=== PATIENT | male | born 1950 | race Caucasian/White ===

== ENCOUNTER → 2017-12-31 | Outpatient (CLI) | payer MEDICARE, OTHER ==
--- NOTE | 2017-12-31 08:08 | RAD ---
EXAM DESCRIPTION: Knee,Left Complete CLINICAL HISTORY: 67 years Male, KNEE PAIN COMPARISON: None. FINDINGS: 4 views of the left knee show no acute fracture or malalignment. Is a small to moderate size left knee joint effusion. Advanced medial joint space narrowing is noted. Less advanced degenerative changes are present in the patellofemoral compartment. Surgical clips are noted in the soft tissues medial to the left tibia proximally. Vascular calcifications are also present. IMPRESSION: Degenerative changes in the medial and patellofemoral compartments including advanced medial joint space narrowing. Small to moderate-sized left knee joint effusion. Electronically signed by: Kavin Chaidez MD 12/31/2017 8:07 AM CDT
--- NOTE | 2017-12-31 08:10 | RAD ---
EXAM DESCRIPTION: Knee,Right Complete CLINICAL HISTORY: 67 years Male, KNEE PAIN COMPARISON: None. FINDINGS: 4 views of the right knee show no acute fracture or malalignment. There is a moderate size right knee joint effusion. Severe joint space narrowing is noted in the medial compartment with less advanced degenerative changes in the patellofemoral and lateral compartments. Subtle chondrocalcinosis is noted in the lateral compartment, also likely degenerative. Several tiny calcifications projecting over the tibial spines on the AP views could represent loose joint bodies. Vascular calcifications are noted. IMPRESSION: Tricompartmental degenerative changes including advanced medial joint space narrowing. Right knee joint effusion and possible calcified loose joint bodies. Electronically signed by: Kavin Chaidez MD 12/31/2017 8:09 AM CDT
--- NOTE | 2017-12-31 08:12 | RAD ---
EXAM DESCRIPTION: Pelvis CLINICAL HISTORY: 67 years Male, PELVIC PAIN COMPARISON: None. FINDINGS: Single AP view the pelvis was obtained. The iliac crests are partially excluded, but no acute fracture or malalignment is seen. Degenerative calcifications arise from the acetabular margins bilaterally without significant hip joint space narrowing. The sacroiliac joints are well-maintained. Vascular calcifications are noted. IMPRESSION: Mild degenerative changes in both hips, but no additional abnormality to explain pelvic pain. Electronically signed by: Kavin Chaidez MD 12/31/2017 8:10 AM CDT
== END ==
LOC: RAD 07:05
PROVIDERS: ATTEND Orthopaedic Surgery
DX: M25.562 Pain in left knee (principal); M25.561 Pain in right knee; M25.551 Pain in right hip; M25.552 Pain in left hip; M25.462 Effusion, left knee; M25.461 Effusion, right knee

== ENCOUNTER → 2018-01-10 | Outpatient (CLI) | payer MEDICARE, OTHER | LOC: RESP 11:15 | PROVIDERS: ATTEND Orthopaedic Surgery | DX: Z01.818 Encounter for other preprocedural examination (principal) ==

== ENCOUNTER 2018-01-23 05:45 | Inpatient (IN) | payer MEDICARE, OTHER ==
--- NOTE | 2018-01-17 13:34 | HP ---
CHIEF COMPLAINT: Bilateral knee pain. HISTORY OF PRESENT ILLNESS: Mr. Munson is a 67-year-old male with a history of pain in both knees that had been getting progressively worse. He has had injections in the past. Unfortunately, his pain has failed to improve with these injections. Because of failure of the conservative measures, he has requested operative intervention. After discussing the risks, benefits and alternatives to operative therapy, the patient has given informed consent for total knee arthroplasty. PAST SURGICAL HISTORY: 1. Cardiac bypass. MEDICATIONS: 1. Coreg. 2. Lasix. 3. Aspirin. 4. Potassium. 5. Ibuprofen. ALLERGIES: NO KNOWN DRUG ALLERGIES. CODE STATUS: Full code. IMMUNIZATIONS: Up to date. SOCIAL HISTORY: The patient does not smoke or use any illicit drugs. He does drink on occasion. FAMILY HISTORY: None pertinent to today's complaint. REVIEW OF SYSTEMS: Negative except as indicated in the History of Present Illness. PHYSICAL EXAMINATION: VITAL SIGNS: Blood pressure 127/71. Pulse 56. Height 5'6". Weight 205 pounds. MENTAL STATUS: The patient is awake, alert, and is able to give a good history and participate in the physical. The patient is oriented to person, place and time. SKIN: Normal tone and turgor. HEENT: Normocephalic, atraumatic. Pupils equal, round and reactive. Mucosal membranes are moist. NECK: Normal range of motion. No thyromegaly, no lymphadenopathy. CHEST: Normal respiratory excursion. CARDIAC: Regular rate and rhythm. No murmurs, rubs or gallops. MUSCULOSKELETAL: Bilateral upper extremities show full active range of motion. He has intact sensation. They are warm and well perfused. He has no deformity. Strength is 5/5. He has no crepitus. The left lower extremity shows full range of motion of the hip without pain. He has range of motion of the knee from 0 to approximately 120 degrees. He is tender diffusely, but most prominent over the medial aspect and with patellar mobilization. He has mild effusion today. Strength is 5/5. He has no varus/valgus or anterior/posterior laxity. The right lower extremity shows full range of motion of the hip. Range of motion of the knee is from 0 to 120 degrees. He has crepitus and pain throughout his range of motion. Sensation is intact. It is warm and well perfused. He has mild effusion. He has no varus/valgus or anterior/posterior laxity. He does have a slight varus deformity. IMAGING: X-rays show bilateral severe arthritis. ASSESSMENT: 1. Arthritis. PLAN: The plan at this point is for total knee arthroplasty. He says the right is worse than the left today, so we are going start with that one. Once he recovers from that, we will begin the other one. #[id number] [facility]
[2018-01-23] MEDS ORDERED: SODIUM CHL 0.9% 100ML MINI-BAG 100 ML IVPB ONE (05:56)
[2018-01-23] MEDS ORDERED: TRANEXAMIC ACID 1,000 MG/10 ML VIAL ONE ×2 (05:57→05:58)
[2018-01-23] MEDS ORDERED: ceFAZolin SODIUM 1 GM VIAL ONE ×2 (05:57→06:38)
[2018-01-23] MEDS ORDERED: LACTATED RINGERS 1,000 ML ONE ×2 (05:57→06:13)
[2018-01-23] MEDS ORDERED: VANCOMYCIN HCL INJ 1,000 MG VIAL IVPB ONE ×4 (05:57→20:01)
[2018-01-23] MEDS ORDERED: SODIUM CHLORIDE 0.9% 250ML 250 ML ONE ×3 (05:58→20:00)
[2018-01-23] MEDS ORDERED: SODIUM CHLORIDE 0.9% 100ML 100 ML IVPB ONE (05:58)
[2018-01-23] MEDS ORDERED: MORPHINE SULFATE *EPIDURAL* 0.5 MG/ML VIAL ONE (06:11)
[2018-01-23] MEDS ORDERED: MIDAZOLAM INJ 2 MG/2 ML VIAL ONE (06:12)
[2018-01-23] MEDS ORDERED: fentaNYL CITRATE INJ 50 MCG/ML AMP ONE (06:12)
[2018-01-23] MEDS ORDERED: LIDOCAINE 2 % GEL 5 ML TUBE TOP ONE (06:13)
[2018-01-23] MEDS ORDERED: BUPIVACAINE 0.25% W/EPI 50 ML VIAL INJ ONE (06:38)
[2018-01-23] MEDS ORDERED: BISACODYL SUPPOSITORY 10 MG PR PRN (06:59)
[2018-01-23] MEDS ORDERED: ACETAMINOPHEN 325 MG TAB PO PRN (06:59)
[2018-01-23] MEDS ORDERED: ONDANSETRON INJ 4 MG/2 ML VIAL IV PRN (06:59)
[2018-01-23] MEDS ORDERED: MORPHINE SULFATE INJ 10 MG/ML VIAL IV PRN (06:59)
[2018-01-23] MEDS ORDERED: ALUMINUM & MAGNESIUM HYDROXIDE 30 ML UD PO PRN (06:59)
[2018-01-23] MEDS ORDERED: DEX 5% W/NACL 0.45% 1000ML 1,000 ML IVS PRN (06:59)
[2018-01-23] MEDS ORDERED: MORPHINE SULFATE INJ 10 MG/ML VIAL IM PRN (06:59)
[2018-01-23] MEDS ORDERED: NALOXONE HCL INJ 0.4 MG/ML VIAL IV PRN (06:59)
[2018-01-23] MEDS ORDERED: PROMETHAZINE HCL INJ 12.5 MG in SODIUM CHLORIDE 0.9% 50ML 50 ML IVPB PRN (06:59)
[2018-01-23] MEDS ORDERED: TEMAZEPAM 15 MG CAP PO PRN (06:59)
[2018-01-23] MEDS ORDERED: SODIUM CHLORIDE 0.9% (FLUSH) 10 ML SYG IV PRN (06:59)
[2018-01-23] MEDS ORDERED: TRANEXAMIC ACID INJ 1,000 MG in SODIUM CHLORIDE 0.9% 100ML 100 ML IVPB ONE (06:59)
[2018-01-23] MEDS ORDERED: BENZOCAINE-MENTH LOZ (CEPACOL) 1 EA LOZ MT PRN (06:59)
[2018-01-23] MEDS ORDERED: ACETAMINOPHEN 500 MG TAB PO PRN (06:59)
[2018-01-23] MEDS ORDERED: MAGNESIUM HYDROXIDE 30 ML UD PO PRN (06:59)
[2018-01-23] MEDS ORDERED: ZOLPIDEM TARTRATE 5 MG TAB PO PRN (06:59)
[2018-01-23] MEDS ORDERED: PROMETHAZINE HCL INJ 25 MG in SODIUM CHLORIDE 0.9% 50ML 50 ML IVPB PRN (06:59)
--- NOTE | 2018-01-23 09:52 | OP ---
DATE OF PROCEDURE: 01/23/18 PREOPERATIVE DIAGNOSIS: 1. Osteoarthritis of the knee. POSTOPERATIVE DIAGNOSIS: 1. Osteoarthritis of the knee. PROCEDURE: 1. Total knee arthroplasty. SURGEON: Musa Hansen MD. DESIGN TRANSFERRER: James Lew CST, SA-C. ANESTHESIA: General. COMPLICATIONS: None. FINDINGS: Severe arthritis of the knee. INDICATION: Mr. Munson has a history of pain in the knee that has been refractory to conservative measures. Because of the refractory nature and the severe pain that is affecting his daily activity, he has requested operative intervention. After discussing the risks, benefits and alternatives to that, the patient has given informed consent for total knee arthroplasty. PROCEDURE: The patient was brought to the Operating Room and placed in supine position. General anesthesia was induced and the patient's leg was sterilely prepped and draped. Following prepping and draping, the distal femur was exposed and using an intramedullary guide, the distal femoral cut was made. The appropriate sized cutting block was measured, pinned into place, and the anterior, posterior, and chamfer cuts were made. The ACL was transected and the tibia was subluxed. Both the medial and lateral menisci were removed. An intramedullary guide was used to make the proximal tibial cut. The appropriate sized base plate was placed and a trial polyethylene was placed. The trial femur was placed, the knee was reduced, and the knee was taken through a range of motion. The knee was stable in anterior, posterior, varus and valgus stress. The patella tracked anatomically without evidence of subluxation or dislocation. After trialing, the trial components were removed and the bony surfaces were thoroughly irrigated with saline. Following irrigation, the surfaces were dried and the final components were cemented into place. The excess cement was removed and the remaining cement was allowed to cure. The knee was again taken through a range of motion to confirm stability. The wound was then irrigated with saline and closure was performed using PDS to approximate the arthrotomy followed by closure of the subcutaneous tissues with a combination of running and interrupted Monocryl sutures. Sterile dressing was placed. The patient was awoken from anesthesia and taken to Recovery. POSTOPERATIVE INSTRUCTIONS: The patient will be weight-bearing as tolerated on postoperative day 1. COMPONENTS: [employer] Triathlon knee, size 4 femur, size 4 tibia, 9 mm insert. #[id number] [facility]
[2018-01-23] MEDS ORDERED: PROPOFOL 200 MG/20 ML VIAL IV ONE (10:00)
[2018-01-23] MEDS ORDERED: DEXAMETHASONE INJ 10 MG/ML VIAL IV ONE (10:00)
[2018-01-23] MEDS ORDERED: METOCLOPRAMIDE HCL INJ 10 MG/2 ML VIAL IV ONE (10:00)
[2018-01-23] MEDS: MORPHINE PCA 1 MG/ML 100 ML BAG IVPB SCH (10:10)
[2018-01-23] MEDS: CELECOXIB 100 MG CAP PO SCH ×2 (11:34→17:20)
[2018-01-23] MEDS: IV SET AND CAP CHANGE INJ INJ SCH (11:34)
[2018-01-23] MEDS: MAGNESIUM OXIDE 400 MG TAB PO SCH (11:35)
[2018-01-23] MEDS ORDERED: ceFAZolin SODIUM 2 GRAMS PREMI 50 ML IVPB ONE ×2 (14:44→20:01)
[2018-01-23] MEDS: ceFAZolin SODIUM 2 GRAMS PREMI 2 GM in PREMIX BAG 1 BAG IVPB SCH ×2 (15:34→23:52)
[2018-01-23] MEDS: VANCOMYCIN HCL INJ 1,000 MG in SODIUM CHLORIDE 0.9% 250ML 250 ML IVPB SCH (17:40)
[2018-01-23] MEDS ORDERED: ENOXAPARIN SODIUM 30 MG/0.3 ML SYG SUBCU ONE (20:02)
[2018-01-23] MEDS: NON-FORMULARY MEDICATION 1 EA MIS (Furosemide [Lasix] 20 MG) PO SCH (21:33)
[2018-01-23] MEDS: DOCUSATE CALCIUM 240 MG CAP PO SCH (21:34)
[2018-01-23] MEDS: traMADol HCL 50 MG TAB PO PRN (22:14)
[2018-01-23] MEDS: ENOXAPARIN SODIUM 30 MG/0.3 ML SYG SUBCU SCH (23:29)
--- NOTE | 2018-01-23 23:45 | CONS ---
DATE OF CONSULTATION: 01/23/18 SUPERVISING PHYSICIAN: Naif Bateman M.D. CHIEF COMPLAINT: Knee pain. HISTORY OF PRESENT ILLNESS: This is a 67 year-old male patient that has a significant history of pain in both of his knees that has progressively worsened. He has had injections in the past but his pain has failed to improve. Due to failed outpatient treatment, he has requested operative intervention by Dr. Musa Hansen, orthopedic surgeon. I am seeing the patient postoperatively after his right total knee arthroplasty. PAST MEDICAL HISTORY: 1. Heart problems as a child. 2. Coronary artery disease. PAST SURGICAL HISTORY: 1. Cardiac bypass surgery. 2. Cardiac surgery as a child at age 12. 3. Vasectomy. 4. Hernia repair. OUTPATIENT MEDICATIONS: Per the EMR and awaiting verification. ALLERGIES: HYDROCODONE. CODE STATUS: FULL CODE. FAMILY HISTORY: Noncontributory. SOCIAL HISTORY: He lives in [place]. He is . He denies any tobacco, ETOH or illicit drug use. He quit smoking many years ago. REVIEW OF SYSTEMS: Negative except as per History of Present Illness. PHYSICAL EXAMINATION: VITAL SIGNS: He is afebrile, heart rate 69, blood pressure 120/75, respiratory rate 15, O2 sat is 96% on 2 liters nasal cannula. GENERAL: This is a 67 year-old male patient who is sitting up in his hospital bed. He is in no acute distress. HEENT: Normocephalic and atraumatic. Pupils are equal and reactive. Oropharynx is clear. NECK: Supple without mass. RESPIRATORY: Clear to auscultation bilaterally. CHEST: There is equal rise and fall of the chest with inspiration and expiration. HEART: Regular rate and rhythm. GASTROINTESTINAL: Abdomen is soft, nondistended, non-tender. Bowel sounds are positive. EXTREMITIES: No cyanosis, clubbing or edema. Bilateral pedal pulses are palpable at +2. He has a dressing to his right knee with an Perico bandage. He is in the CPM machine at this time. NEUROLOGIC: He is awake, alert and oriented times three. LABORATORY: Urine is basically within normal limits. All other labs and films have been reviewed via the EMR. IMPRESSION: 1. Osteoarthritis of bilateral knees status post right total knee arthroplasty , postoperative day [address] Musa Hansen, orthopedic surgeon. 2. Coronary artery disease. PLAN: We will continue present supportive care. Orthopedic issues will be per Dr. Musa Hansen. He will start with his physical therapy for strengthening and conditioning tomorrow with Physical Therapy. I have restarted his home medications. I have ordered a BMP for tomorrow. Will continue to encourage good pulmonary hygiene. We will continue to monitor the patient closely and follow as needed. Dr. Bateman is the collaborating physician available for consultation. #[id number] [facility]
[2018-01-24] MEDS: traMADol HCL 50 MG TAB PO PRN ×5 (01:53→21:44)
[2018-01-24] MEDS: VANCOMYCIN HCL INJ 1,000 MG in SODIUM CHLORIDE 0.9% 250ML 250 ML IVPB SCH (06:33)
[2018-01-24] MEDS ORDERED: ceFAZolin SODIUM 2 GRAMS PREMI 50 ML IVPB ONE (08:15)
[2018-01-24] MEDS: ceFAZolin SODIUM 2 GRAMS PREMI 2 GM in PREMIX BAG 1 BAG IVPB SCH (08:31)
[2018-01-24] MEDS: CELECOXIB 100 MG CAP PO SCH ×2 (08:31→17:49)
[2018-01-24] MEDS: CYCLOBENZAPRINE HCL 10 MG TAB PO PRN ×2 (08:35→17:50)
[2018-01-24] MEDS ORDERED: CARVEDILOL 3.125 MG TAB PO SCH (09:00)
[2018-01-24] MEDS: POTASSIUM CHLORIDE 10 MEQ TAB PO SCH (09:46)
[2018-01-24] MEDS: NON-FORMULARY MEDICATION 1 EA MIS (Furosemide [Lasix] 20 MG) PO SCH ×2 (09:46→21:46)
[2018-01-24] MEDS: MAGNESIUM OXIDE 400 MG TAB PO SCH (09:49)
--- NOTE | 2018-01-24 10:46 | RAD ---
EXAM DESCRIPTION: Knee,Right 2 or More Views CLINICAL HISTORY: 67 years, Male, TKA COMPARISON: Previous study December 31, 2017 TECHNIQUE: Two views of the right knee FINDINGS: Total right knee arthroplasty is noted with air in the soft tissues consistent with postoperative film. There is normal anatomic alignment of femoral and tibial components with no complicating fracture. There is vascular calcification. IMPRESSION: Total right knee arthroplasty. No complicating fracture. Electronically signed by: Carlos Eduardo Barros MD 01/24/2018 10:45 AM CDT
[2018-01-24] MEDS: ENOXAPARIN SODIUM 30 MG/0.3 ML SYG SUBCU SCH ×2 (11:58→23:21)
--- NOTE | 2018-01-24 13:42 | PN ---
DATE: 01/24/18 SUBJECTIVE: Mr. Munson is sitting up in a chair and his pain is well controlled right now. OBJECTIVE: Afebrile. Vital signs stable. Dressing is clean, dry and intact. ASSESSMENT: Status post total knee arthroplasty. PLAN: The plan at this point is for him to continue with weight-bearing as tolerated as well as increasing CPM. [facility][id number] [facility]
[2018-01-24] MEDS: MORPHINE PCA 1 MG/ML 100 ML BAG IVPB SCH (15:36)
--- NOTE | 2018-01-24 19:41 | PN ---
DATE: 01/24/18 SUPERVISING PHYSICIAN: Naif Bateman M.D. SUBJECTIVE: The patient is lying in his hospital bed. He is using his CPM machine on his right knee. He has no complaints of shortness of breath, chest pain, nausea, vomiting or diarrhea. He feels like his physical therapy went well and is looking forward to going home. We discussed at length his discharge plan, including his physical therapy in [place]. He will be using an [facility] physical therapy department and has a medical supply in [place], and would like to get his equipment from them. OBJECTIVE: VITAL SIGNS: Afebrile, heart rate 72, blood pressure 136/74, respiratory rate 18, O2 sat 96% on room air. LABORATORY: H&H 13.2 and 38.6. Sodium 136, potassium 3.6, chloride 95, carbon dioxide 33, BUN 13, creatinine 0.88, glucose 138. Serum osmolality 74.3. All other labs and films have been reviewed via the EMR. ASSESSMENT: 1. Osteoarthritis of bilateral knees status post right total knee arthroplasty , postoperative day #[address] Musa Hansen, orthopedic surgeon. 2. Coronary artery disease. PLAN: We will continue present supportive care. Orthopedic issues will be per Dr. Hansen. He will continue his physical therapy and strengthening per Physical Therapy. Will need to check on his equipment as well as his physical therapy appointment before discharge. We will continue to monitor him closely and follow as needed. Dr. Bateman is the collaborating physician available for consultation. #[id number] [facility]
[2018-01-24] MEDS: DOCUSATE CALCIUM 240 MG CAP PO SCH (21:46)
[2018-01-24] MEDS: CARVEDILOL 3.125 MG TAB PO SCH (21:46)
[2018-01-25] MEDS: traMADol HCL 50 MG TAB PO PRN ×2 (06:16→12:24)
[2018-01-25] MEDS: CELECOXIB 100 MG CAP PO SCH ×2 (08:21→17:12)
[2018-01-25] MEDS: CYCLOBENZAPRINE HCL 10 MG TAB PO PRN ×2 (08:21→17:13)
[2018-01-25] MEDS: MAGNESIUM OXIDE 400 MG TAB PO SCH (08:22)
[2018-01-25] MEDS: POTASSIUM CHLORIDE 10 MEQ TAB PO SCH (08:22)
[2018-01-25] MEDS: NON-FORMULARY MEDICATION 1 EA MIS (Furosemide [Lasix] 20 MG) PO SCH ×2 (08:22→20:40)
[2018-01-25] MEDS: SODIUM CHLORIDE 0.9% (FLUSH) 10 ML SYG IV SCH ×2 (08:40→20:40)
[2018-01-25] MEDS: ENOXAPARIN SODIUM 30 MG/0.3 ML SYG SUBCU SCH ×2 (12:24→22:15)
--- NOTE | 2018-01-25 13:14 | PN ---
SUPERVISING PHYSICIAN: Naif Bateman MD DATE: 01/25/18 SUBJECTIVE: The patient is sitting up in his chair eating his lunch. He feels like his therapy has been going well. He does have some pain in the knee, but it has not been unbearable. He denies chest pain, shortness of breath , nausea , vomiting, diarrhea or constipation. He feels like he should be ready to go home tomorrow. OBJECTIVE: VITAL SIGNS: Afebrile. Heart rate 88. Blood pressure 136/78. Respiratory rate 16. O2 saturation 94% on 2 liters nasal cannula. RESPIRATORY: Essentially clear to auscultation bilaterally. CARDIAC: Regular rate and rhythm. EXTREMITIES: Dressing to his right knee is dry and intact. He has minimal swelling. Bilateral pedal pulses are +2 and strong. NEUROLOGIC: Awake, alert and oriented times three. LABORATORY: All other labs and films have been reviewed via the EMR. ASSESSMENT: 1. Osteoarthritis of bilateral knees status post right total knee arthroplasty , postoperative day #2, performed by Dr. Musa Hansen, orthopedic surgeon. 2. Coronary artery disease. PLAN: We will continue present supportive care. Orthopedic issues will be per Dr. Musa Hansen, orthopedic surgeon. Physical therapy will continue for strengthening and conditioning. Physical therapy has recommended he be discharged tomorrow after his morning physical therapy. He will do outpatient physical therapy in [place]. Continue to encourage good pulmonary hygiene. We will continue to monitor the patient closely and follow as needed. Dr. Bateman is the collaborating physician and available for consultation. #[id number] [facility]
[2018-01-25] MEDS ORDERED: FUROSEMIDE 40 MG TAB ONE (19:57)
[2018-01-25] MEDS: DOCUSATE CALCIUM 240 MG CAP PO SCH (20:40)
[2018-01-25] MEDS: CARVEDILOL 3.125 MG TAB PO SCH (20:40)
[2018-01-26] MEDS ORDERED: FUROSEMIDE 40 MG TAB ONE ×2 (07:43→08:48)
[2018-01-26] MEDS: CELECOXIB 100 MG CAP PO SCH (07:55)
[2018-01-26] MEDS: POTASSIUM CHLORIDE 10 MEQ TAB PO SCH (07:56)
[2018-01-26] MEDS: IV SET AND CAP CHANGE INJ INJ SCH (08:33)
[2018-01-26] MEDS: MAGNESIUM OXIDE 400 MG TAB PO SCH (08:42)
[2018-01-26] MEDS: NON-FORMULARY MEDICATION 1 EA MIS (Furosemide [Lasix] 20 MG) PO SCH (08:53)
[2018-01-26] MEDS: SODIUM CHLORIDE 0.9% (FLUSH) 10 ML SYG IV SCH (08:54)
[2018-01-26 11:09] VITALS: BP 148/73; TEMP 98.2; O2SAT 88
[2018-01-26] MEDS: ENOXAPARIN SODIUM 30 MG/0.3 ML SYG SUBCU SCH (11:58)
[2018-01-26] MEDS ORDERED: MAGNESIUM HYDROXIDE 30 ML UD PO ONE (21:00)
[2018-01-26] MEDS ORDERED: BISACODYL SUPPOSITORY 10 MG PR ONE (21:00)
--- NOTE | 2018-01-30 15:57 | DS ---
SUPERVISING PHYSICIAN: Naif Bateman M.D. DISCHARGE DIAGNOSIS: 1. Osteoarthritis of bilateral knees status post right total knee arthroplasty , postoperative day #3. 2. Coronary artery disease. REASON FOR HOSPITALIZATION: Mr. Munson is a 67 year-old male patient with a history of bilateral arthritis of the knees that has progressively worsened. He had multiple injections and other conservative measures treatments in the outpatient setting but had failed to receive significant improvement. He requested an elective total knee arthroplasty for symptomatic relief. He was admitted for elective total right knee arthroplasty on 01/23/18 and was followed in the immediate postoperative state. He was found in stable condition. LABORATORY: Postoperative H&H was 13.2 and 38.6. BMP showed normal electrolytes with BUN 13, creatinine 0.8, glucose 138, calcium 9.2. Urinalysis showed to be within normal limits. HOSPITAL COURSE: Mr. Munson as admitted as noted above on 01/23/18 for elective total right knee arthroplasty that was performed by Dr. Musa Hansen. Please refer to his operative note for full details. The patient progressed well through his physical therapy efforts and on 01/26/18 was felt clinically well enough to continue in the outpatient setting with physical therapy rehabilitation. PLAN: Mr. Munson was discharged on 01/26/18 to have continued physical therapy and rehabilitation through [facility]. He was to resume his usual diet as tolerated, increase his activity as per Physical Therapy. He was to have wound management as per Dr. Hansen's postoperative management. He was encouraged to return to the hospital or call Dr. Hansen should any concerning symptoms. Medications at discharge included: 1. Tramadol 50 to 100 mg every 6 hours as needed for pain. 2. Flexeril 10 mg every 8 hours, #15. 3. Xarelto 10 mg daily, #8. Condition on discharge was stable and improved. [facility][id number] [facility]
== END 2018-01-26 12:20 | disposition home or self-care (01) | DRG 470 ==
LOC: AMB 05:45 → MS 11:20
PROVIDERS: ADMIT Orthopaedic Surgery; ATTEND Nurse Practitioner Family
PROC: 0SRC0J9 Replacement of Right Knee Joint with Synthetic Substitute, Cemented, Open Approach (ICD-10-PCS; principal; 2018-01-23 07:00)
DX: M17.0 Bilateral primary osteoarthritis of knee (principal); I25.10 Atherosclerotic heart disease of native coronary artery without angina pectoris; Z95.1 Presence of aortocoronary bypass graft; Z79.82 Long term (current) use of aspirin; Z87.891 Personal history of nicotine dependence

== ENCOUNTER → 2018-10-11 | Outpatient (CLI) | payer MEDICARE, OTHER ==
--- NOTE | 2018-10-15 13:58 | RAD ---
EXAM DESCRIPTION: Knee,Left Complete CLINICAL HISTORY: OSTEOARTHRITIS COMPARISON: None. Findings: 4 standing views of the left knee show severe narrowing of the medial tibiofemoral compartment with mild joint line osteophytes. Flattening and sclerotic changes to the weightbearing articular surface are seen. Mild lateral positioning of the tibia plateau relative to the femoral condyles seen. Mild posterior osteophytes of the patella are seen with mild narrowing of the patellofemoral compartment. Mild increased density in the suprapatellar bursa is seen. Vascular calcifications are identified. Surgical clips in the medial soft tissue from previous vein graft harvest are noted. IMPRESSION: 3 compartment osteoarthritic changes of the left knee are seen with severe advanced osteoarthritic changes of the medial tibiofemoral compartment. Small left knee joint effusion. Electronically signed by: David Orozco MD 10/15/2018 1:56 PM [facility]
== END ==
LOC: RESP 10:49
PROVIDERS: ATTEND Orthopaedic Surgery
DX: Z01.818 Encounter for other preprocedural examination (principal); M17.12 Unilateral primary osteoarthritis, left knee

== ENCOUNTER 2018-10-22 05:26 | Inpatient (IN) | payer MEDICARE, OTHER ==
--- NOTE | 2018-10-21 10:25 | HP ---
CHIEF COMPLAINT: Left knee pain. HISTORY OF PRESENT ILLNESS: Mr. Munson is a 68-year-old male with a history of severe bilateral knee pain. He has had this going on for years and it is getting progressively worse. He has failed conservative measures and has had contralateral knee replacement. He is requesting operative intervention. After discussing the risks, benefits and alternatives to operative therapy, he has given informed consent. PAST SURGICAL HISTORY: 1. Cardiac bypass. 2. Total knee replacement. 3. Umbilical herniorrhaphy. MEDICATIONS: 1. Lasix. 2. Potassium chloride. 3. Carvedilol. 4. Metolazone. 5. Tylenol. ALLERGIES: NO KNOWN DRUG ALLERGIES. CODE STATUS: Full code. IMMUNIZATIONS: Up to date. FAMILY HISTORY: None pertinent to today's complaint. SOCIAL HISTORY: The patient does not smoke or use any illicit drugs. He does drink on occasion. REVIEW OF SYSTEMS: Negative except as indicated in the History of Present Illness. PHYSICAL EXAMINATION: VITAL SIGNS: Blood pressure 131/83. Pulse 70. Height 5'6". Weight 204 pounds. MENTAL STATUS: The patient is awake, alert, and is able to give a good history and participate in the physical. The patient is oriented to person, place and time. SKIN: Normal tone and turgor. HEENT: Normocephalic, atraumatic. Pupils equal, round and reactive. Mucosal membranes are moist. NECK: Normal range of motion. No thyromegaly, no lymphadenopathy. CHEST: Normal respiratory excursion. CARDIAC: Regular rate and rhythm. No murmurs, rubs or gallops. MUSCULOSKELETAL: He has full range of motion of bilateral upper extremities. He has intact sensation throughout the extremities. There is no deformity and no crepitus with range of motion. Sensation is intact. They are warm and well perfused. The right lower extremity shows full range of motion of the hip. Range of motion of the knee is from 0 to about 125. Sensation is intact. It is warm and well perfused. There is no varus/valgus or anterior/posterior laxity. The left lower extremity shows full range of motion in the hip. He has range of motion from 0 to about 125 degrees of the knee. He has slight varus deformity of the knee. Sensation is intact. Strength is 5/5. The extremity is warm and well perfused. He has crepitus throughout his range of motion and tenderness diffusely to palpation. IMAGING: X-rays show severe osteoarthritis with varus deformity. ASSESSMENT: 1. Osteoarthritis. PLAN: The plan at this point is total knee arthroplasty. We have discussed the risks, benefits, and alternatives to that and the patient has given informed consent. [facility][id number] [facility]
[2018-10-22] MEDS ORDERED: ceFAZolin SODIUM 1 GM VIAL ONE ×2 (06:05→08:17)
[2018-10-22] MEDS ORDERED: TRANEXAMIC ACID 1,000 MG/10 ML VIAL ONE ×2 (06:05→06:06)
[2018-10-22] MEDS ORDERED: LACTATED RINGERS 1,000 ML ONE ×2 (06:05→13:36)
[2018-10-22] MEDS ORDERED: SODIUM CHL 0.9% 100ML MINI-BAG 100 ML IVPB ONE (06:05)
[2018-10-22] MEDS ORDERED: VANCOMYCIN HCL INJ 1,000 MG VIAL IVPB ONE ×2 (06:05→19:20)
[2018-10-22] MEDS ORDERED: SODIUM CHLORIDE 0.9% 100ML 100 ML IVPB ONE (06:06)
[2018-10-22] MEDS ORDERED: SODIUM CHLORIDE 0.9% 250ML 250 ML ONE ×2 (06:06→19:19)
[2018-10-22] MEDS ORDERED: fentaNYL CITRATE INJ 50 MCG/ML AMP ONE (09:24)
[2018-10-22] MEDS ORDERED: MIDAZOLAM INJ 2 MG/2 ML VIAL ONE (09:24)
[2018-10-22] MEDS ORDERED: MORPHINE SULF *EPIDURAL* 1 MG/ML VIAL ONE (09:24)
[2018-10-22] MEDS ORDERED: NALOXONE HCL INJ 0.4 MG/ML VIAL IV PRN (09:30)
[2018-10-22] MEDS ORDERED: BISACODYL SUPPOSITORY 10 MG PR PRN (09:30)
[2018-10-22] MEDS ORDERED: IV SET AND CAP CHANGE INJ INJ SCH (09:30)
[2018-10-22] MEDS ORDERED: CYCLOBENZAPRINE HCL 10 MG TAB PO PRN (09:30)
[2018-10-22] MEDS ORDERED: ALUMINUM & MAGNESIUM HYDROXIDE 30 ML UD PO PRN (09:30)
[2018-10-22] MEDS ORDERED: ONDANSETRON INJ 4 MG/2 ML VIAL IV PRN (09:30)
[2018-10-22] MEDS ORDERED: TRANEXAMIC ACID INJ 1,000 MG in SODIUM CHLORIDE 0.9% 100ML 100 ML IVPB ONE (09:30)
[2018-10-22] MEDS ORDERED: MORPHINE PCA 1 MG/ML 100 ML BAG IVPB SCH (09:30)
[2018-10-22] MEDS ORDERED: MORPHINE SULFATE INJ 10 MG/ML VIAL IM PRN (09:30)
[2018-10-22] MEDS ORDERED: ACETAMINOPHEN 325 MG TAB PO PRN (09:30)
[2018-10-22] MEDS ORDERED: MAGNESIUM HYDROXIDE 30 ML UD PO PRN (09:30)
[2018-10-22] MEDS ORDERED: SODIUM CHLORIDE 0.9% (FLUSH) 10 ML SYG IV PRN (09:30)
[2018-10-22] MEDS ORDERED: PROMETHAZINE HCL INJ 12.5 MG in SODIUM CHLORIDE 0.9% 50ML 50 ML IVPB PRN (09:30)
[2018-10-22] MEDS ORDERED: BENZOCAINE-MENTH LOZ (CEPACOL) 1 EA LOZ MT PRN (09:30)
[2018-10-22] MEDS ORDERED: PROMETHAZINE HCL INJ 25 MG in SODIUM CHLORIDE 0.9% 50ML 50 ML IVPB PRN (09:30)
[2018-10-22] MEDS ORDERED: DEX 5% W/NACL 0.45% 1000ML 1,000 ML IVS PRN (09:30)
[2018-10-22] MEDS ORDERED: TEMAZEPAM 15 MG CAP PO PRN (09:30)
[2018-10-22] MEDS ORDERED: MORPHINE SULFATE INJ 10 MG/ML VIAL IV PRN (09:30)
[2018-10-22] MEDS ORDERED: ACETAMINOPHEN 500 MG TAB PO PRN (09:30)
[2018-10-22] MEDS ORDERED: ZOLPIDEM TARTRATE 5 MG TAB PO PRN (09:30)
[2018-10-22] MEDS ORDERED: DEXAMETHASONE INJ 10 MG/ML VIAL IV ONE (10:00)
[2018-10-22] MEDS ORDERED: ePHEDrine SULF 50 MG/ML IV ONE (10:00)
[2018-10-22] MEDS ORDERED: METOCLOPRAMIDE HCL INJ 10 MG/2 ML VIAL IV ONE (10:00)
[2018-10-22] MEDS ORDERED: LIDOCAINE 1% 10 ML VIAL INJ ONE (10:00)
[2018-10-22] MEDS ORDERED: PROPOFOL 200 MG/20 ML VIAL IV ONE (10:00)
[2018-10-22] MEDS ORDERED: raNITIdine HCL INJ 25 MG/ML VIAL IV ONE (10:00)
[2018-10-22] MEDS ORDERED: ACETAMINOPHEN IV 1000MG 100 ML ONE (10:48)
[2018-10-22] MEDS: BUPIVACAINE LIPOSOME 13.3 MG/ML VIAL INJ ONE ×2 (11:18→12:15)
[2018-10-22] MEDS: BUPIVACAINE 0.5% 30 ML VIAL INJ ONE ×2 (11:18→12:15)
[2018-10-22] MEDS: ceFAZolin SODIUM 1 GM VIAL ONE ×2 (11:18→12:15)
[2018-10-22] MEDS: VANCOMYCIN HCL INJ 1,000 MG VIAL IVPB ONE ×2 (11:19→12:15)
[2018-10-22] MEDS ORDERED: BUPIVACAINE LIPOSOME 13.3 MG/ML VIAL INJ ONE (11:48)
--- NOTE | 2018-10-22 15:58 | RAD ---
EXAM DESCRIPTION: Knee,Left 2 or More Views CLINICAL HISTORY: 68 years Male, TKA TECHNIQUE: 2 views of the left knee were performed. COMPARISON: None available. FINDINGS: The visualized bones appear well mineralized. No acute fracture or dislocation. Changes of left total knee arthroplasty.. Soft tissue swelling and subcutaneous venous emphysema is noted. IMPRESSION: Changes of left total knee arthroplasty with expected postsurgical changes and the surrounding soft tissues. Electronically signed by: Terence Rico MD 10/22/2018 3:57 PM [facility]
[2018-10-22] MEDS ORDERED: ceFAZolin SODIUM 2 GRAMS PREMI 2 GM in PREMIX BAG 1 BAG IVPB SCH (16:00)
[2018-10-22] MEDS ORDERED: POLYVINYL ALCOHOL 1.4% OPHTH SOL 1 DROP BOTH_EYES PRN (16:58)
[2018-10-22] MEDS ORDERED: ceFAZolin SODIUM 2 GRAMS PREMI 50 ML IVPB ONE ×2 (17:35→19:20)
[2018-10-22] MEDS: CELECOXIB 100 MG CAP PO SCH (17:59)
[2018-10-22] MEDS ORDERED: VANCOMYCIN HCL INJ 1,000 MG in SODIUM CHLORIDE 0.9% 250ML 250 ML IVPB SCH (18:00)
[2018-10-22] MEDS: ceFAZolin SODIUM 2 GRAMS PREMI 2 GM in PREMIX BAG 1 BAG IVPB SCH (18:15)
[2018-10-22] MEDS ORDERED: ENOXAPARIN SODIUM 30 MG/0.3 ML SYG SUBCU ONE (19:19)
[2018-10-22] MEDS ORDERED: FUROSEMIDE 40 MG TAB ONE (19:19)
[2018-10-22] MEDS: VANCOMYCIN HCL INJ 1,000 MG in SODIUM CHLORIDE 0.9% 250ML 250 ML IVPB SCH (20:33)
[2018-10-22] MEDS ORDERED: CARVEDILOL 3.125 MG TAB PO SCH (21:00)
[2018-10-22] MEDS ORDERED: DOCUSATE CALCIUM 240 MG CAP PO SCH (21:00)
[2018-10-22] MEDS ORDERED: NON-FORMULARY MEDICATION 1 EA MIS (Furosemide [Lasix] 20 MG) PO SCH (21:00)
--- NOTE | 2018-10-22 21:12 | CONS ---
DATE OF CONSULTATION: 10/22/18 SUPERVISING PHYSICIAN: Josep Noel M.D. HISTORY OF PRESENT ILLNESS: Mr. Munson is a 68 year-old male patient that was admitted today for an elective left knee total arthroplasty by Dr. Musa Hansen. He has a long history of severe bilateral knee pain going on for multiple years that had progressively worsened. He failed to have any relief of conservative measures and has had a contralateral knee replacement. He requested operative intervention for symptom control performed by Dr. Musa Hansen. He had no intraoperative complications and was seen in the immediate postoperative state in stable condition. He was alert. PAST MEDICAL HISTORY: 1. Coronary artery disease status post coronary artery bypass surgery. 2. Compensated congestive heart failure, systolic with no current echocardiogram available for review at time of admission. 3. Pulmonary hypertension. PAST SURGICAL HISTORY: 1. Cardiac bypass. 2. Total right knee replacement. 3. Umbilical hernia repair. 4. Bilateral cataract extraction. HOME MEDICATIONS: 1. Ibuprofen 800 mg daily. 2. Metolazone 5 mg as needed for swelling. 3. Aspirin 81 mg weekly. 4. Coreg 3.125 mg at bedtime. 5. Lasix 20 mg at bedtime. 6. Lasix 40 mg in the morning. 7. Potassium chloride 10 mEq daily. ALLERGIES: HYDROCODONE. FAMILY HISTORY: Noncontributory. SOCIAL HISTORY: The patient lives in [place], [place] and he is . He is self employed. He has no history of alcohol or tobacco abuse. REVIEW OF SYSTEMS: CONSTITUTIONAL: Negative for any fevers, chills, general malaise, unintentional weight loss. HEENT: Negative for headaches, vision changes, sore throat, nasal congestion. CARDIOVASCULAR: Negative for exertional dyspnea, chest pains, palpitations, syncopal episodes. RESPIRATORY: Negative for coughing, wheezing or shortness of breath. GASTROINTESTINAL: Negative for nausea, vomiting, diarrhea, constipation or abdominal pain. GENITOURINARY: No dysuria, hematuria or polyuria. MUSCULOSKELETAL: As noted in history of present illness, bilateral advanced arthritis and knee pain status post bilateral knee replacements. NEUROLOGIC: Negative for seizures, ataxia, vision changes, syncopal episodes, paresthesias or any neurological deficits. PHYSICAL EXAMINATION: VITAL SIGNS: Temperature 97.8, pulse 67, blood pressure 139/72, respirations 20, satting 94% on nasal cannula at rest on 2 liters. Admission weight is 90.7 kg. GENERAL: The patient is alert, sitting in bed. Appears to be in no acute distress. HEENT: Tympanic membranes are clear bilaterally. Oropharynx is pink and moist without any lesions. NECK: Supple, non-tender. Full range of motion. No jugular venous distention. CHEST: Lungs are clear to auscultation bilaterally without any rhonchi, wheezing or rales. HEART: Regular rate and rhythm without appreciable murmurs, gallops, or rubs. ABDOMEN: Obese but soft, non-tender. Positive bowel sounds. EXTREMITIES: Left knee has a bulky surgical dressing in place. Distally pulses are strong, capillary refill is brisk bilaterally. NEUROLOGIC: He is alert and oriented times three. LABORATORY: Postoperative labs are pending. ASSESSMENT: 1. Advanced osteoarthritis of the left knee failing to respond to outpatient treatment measures status post total left knee arthroplasty for symptom control, immediate postoperative day 0. 2. Coronary artery disease status post coronary artery bypass graft surgery. 3. Compensated congestive heart failure, systolic with no echocardiogram available at time of admission. 4. History of pulmonary hypertension. PLAN: Will follow the patient as he progresses through his postoperative phase and physical therapy rehabilitation efforts. I will restart his medications as those have been updated and verified as appropriate to care. He will be on DVT prophylaxis as per protocol. At this point the plan is to continue with outpatient therapy in [place], [place] once he is able to discharge. Will defer orthopedic care to Dr. Hansen. Will anticipate length of stay to be 2 to 3 days. Until the patient can discharge to outpatient management will continue to monitor and treat as needed. Once discharged he will need followup with Dr. Hansen and his primary care physician who is Dr. Morris. #[id number] [facility]
[2018-10-22] MEDS: ENOXAPARIN SODIUM 30 MG/0.3 ML SYG SUBCU SCH (23:04)
[2018-10-23] MEDS: ceFAZolin SODIUM 2 GRAMS PREMI 2 GM in PREMIX BAG 1 BAG IVPB SCH ×2 (02:06→11:44)
[2018-10-23] MEDS ORDERED: SODIUM CHLORIDE 0.9% 250ML 250 ML ONE (07:28)
[2018-10-23] MEDS ORDERED: POTASSIUM CHLORIDE 10 MEQ TAB PO ONE (07:29)
[2018-10-23] MEDS ORDERED: FUROSEMIDE 40 MG TAB ONE (07:29)
[2018-10-23] MEDS ORDERED: VANCOMYCIN HCL INJ 1,000 MG VIAL IVPB ONE (07:29)
[2018-10-23] MEDS: CELECOXIB 100 MG CAP PO SCH (07:54)
[2018-10-23] MEDS: traMADol HCL 50 MG TAB PO PRN ×2 (08:56→13:19)
[2018-10-23] MEDS ORDERED: NON-FORMULARY MEDICATION 1 EA MIS (Potassium Chloride [Micro-K] 10 MEQ) PO SCH (09:00)
[2018-10-23] MEDS ORDERED: NON-FORMULARY MEDICATION 1 EA MIS (Furosemide [Lasix] 40 MG) PO SCH (09:00)
[2018-10-23] MEDS ORDERED: MAGNESIUM OXIDE 400 MG TAB PO SCH (09:00)
[2018-10-23] MEDS: VANCOMYCIN HCL INJ 1,000 MG in SODIUM CHLORIDE 0.9% 250ML 250 ML IVPB SCH (09:41)
[2018-10-23] MEDS ORDERED: ceFAZolin SODIUM 2 GRAMS PREMI 50 ML IVPB ONE (10:09)
[2018-10-23] MEDS: ENOXAPARIN SODIUM 30 MG/0.3 ML SYG SUBCU SCH (11:45)
[2018-10-23 13:27] VITALS: BP 142/65; TEMP 98.3; O2SAT 92
[2018-10-23] MEDS ORDERED: FUROSEMIDE 40 MG TAB PO SCH (21:00)
--- NOTE | 2018-10-23 22:07 | DS ---
SUPERVISING PHYSICIAN: Josep Noel M.D. DISCHARGE DIAGNOSIS: 1. Advanced osteoarthritis of the left knee having failed to respond to outpatient treatment measures status post total left knee arthroplasty performed per Dr. Musa Hansen, orthopedic surgeon. Postoperative day 1. 2. Coronary artery disease status post coronary artery bypass graft surgery. 3. Compensated congestive heart failure, systolic in etiology with no echocardiogram available for review. 4. History of pulmonary hypertension. HISTORY OF PRESENT ILLNESS: This is a 68 year-old male patient that lives in [place]. He was admitted yesterday for elective left total knee arthroplasty per Dr. Musa Hansen, orthopedic surgeon. He has a long history of severe bilateral knee pain that has been going on for multiple years. It has progressively worsened. He failed conservative measures and has had a right knee replacement in the past. He was seen postoperatively after his left total knee arthroplasty. He had no problems intraoperatively and was admitted to the Medical/Surgical floor postoperatively yesterday. HOSPITAL COURSE: The patient used minimal pain medications while on the morphine WATER [employer]IC. He was transitioned over to Tramadol. He met his goals today with physical therapy. He has requested that he be discharged home. After seeing Dr. Hansen as per Physical Therapy it has been recommended that he can be discharged home today. DISCHARGE PLAN: The patient will be discharged home in stable condition. He has a followup tomorrow with Dr. Musa Hansen at 9:45 AM for dressing changes. He will be at [place] outpatient physical therapy. He is to resume his previous diet as well as his previous medications. He will have Tramadol for pain as well as 10 more days of Xarelto starting tomorrow. He is to return to the hospital or call Dr. Hansen's office for any problems or complications. DISCHARGE MEDICATIONS: 1. Coreg. 2. Furosemide. 3. Metolazone. 4. Potassium chloride. 5. Aspirin. 6. Ibuprofen. 7. Xarelto. #[id number] [facility]
[2018-10-24] MEDS ORDERED: SODIUM CHLORIDE 0.9% (FLUSH) 10 ML SYG IV SCH (09:00)
[2018-10-24] MEDS ORDERED: FUROSEMIDE 40 MG TAB PO SCH (09:00)
--- NOTE | 2018-10-25 08:34 | OP ---
DATE OF PROCEDURE: 10/22/18 PREOPERATIVE DIAGNOSIS: 1. Left knee osteoarthritis. POSTOPERATIVE DIAGNOSIS: 1. Left knee osteoarthritis. PROCEDURE: 1. Total knee arthroplasty. SURGEON: Musa Hansen MD. GOLDSMITH APPRENTICE: James Lew CST, SA-C. ANESTHESIA: General anesthesia. COMPLICATIONS: None. FINDINGS: Severe arthritis. INDICATION: Mr. Munson has a long history of knee pain for which he has failed conservative measures. He has requested operative intervention. After discussing the risks, benefits and alternatives to that, the patient has given informed consent for total knee arthroplasty. PROCEDURE: The patient was brought to the Operating Room and placed in supine position. General anesthesia was induced and the patient's leg was sterilely prepped and draped. Following prepping and draping, the distal femur was exposed and using an intramedullary guide, the distal femoral cut was made. The appropriate sized cutting block was measured, pinned into place, and the anterior, posterior, and chamfer cuts were made. The ACL was transected and the tibia was subluxed. Both the medial and lateral menisci were removed. An intramedullary guide was used to make the proximal tibial cut. The appropriate sized base plate was placed and a trial polyethylene was placed. The trial femur was placed, the knee was reduced, and the knee was taken through a range of motion. The knee was stable in anterior, posterior, varus and valgus stress. The patella tracked anatomically without evidence of subluxation or dislocation. After trialing, the trial components were removed and the bony surfaces were thoroughly irrigated with saline. Following irrigation, the surfaces were dried and the final components were cemented into place. The excess cement was removed and the remaining cement was allowed to cure. The knee was again taken through a range of motion to confirm stability. The wound was then irrigated with saline and closure was performed using PDS to approximate the arthrotomy followed by closure of the subcutaneous tissues with a combination of running and interrupted Monocryl sutures. Sterile dressing was placed. The patient was awoken from anesthesia and taken to Recovery. POSTOPERATIVE PLAN: The patient will be weight-bearing as tolerated on postoperative day 1. COMPONENTS: Viibar Triathlon knee, size 4 femur, size 4 tibia, 9 mm insert. #[id number] [facility]
--- NOTE | 2018-10-25 08:39 | PN ---
DATE: 10/22/18 POSTOPERATIVE CHECK SUBJECTIVE: Mr. Munson is doing well. He has pain that is well controlled. OBJECTIVE: Afebrile. Vital signs stable. Dressing is clean, dry and intact. ASSESSMENT: Status post total knee arthroplasty. PLAN: The plan at this point is for to begin weightbearing as tolerated on postoperative day 1. #[id number] [facility]
--- NOTE | 2018-10-25 08:42 | PN ---
DATE: 10/23/18 SUBJECTIVE: Mr. Munson is doing well. He has been up walking the silva without assistance. OBJECTIVE: Afebrile. Vital signs stable. Dressing is clean, dry and intact. ASSESSMENT: Status post total knee arthroplasty. PLAN: Mr. Munson is requesting to be discharged today. He is doing very well on his own and he understands the outpatient physical therapy regimen as he has recently had his contralateral knee replaced by us. At this point, I think that is reasonable and he is going to be discharged with followup in one day for dressing change. He has been instructed to return immediately should any change in his condition occur. #[id number] [facility]
[2018-10-25] MEDS ORDERED: BISACODYL SUPPOSITORY 10 MG PR ONE (21:00)
[2018-10-25] MEDS ORDERED: MAGNESIUM HYDROXIDE 30 ML UD PO ONE (21:00)
[2018-10-29] MEDS ORDERED: ASPIRIN (ENTERIC COATED) 81 MG TAB PO SCH (09:00)
== END 2018-10-23 16:50 | disposition home or self-care (01) | DRG 470 ==
LOC: AMB 05:26 → MS 14:30
PROVIDERS: ADMIT Orthopaedic Surgery; ATTEND Nurse Practitioner Acute Care
PROC: 0SRD0J9 Replacement of Left Knee Joint with Synthetic Substitute, Cemented, Open Approach (ICD-10-PCS; principal; 2018-10-22 10:31)
DX: M17.12 Unilateral primary osteoarthritis, left knee (principal); I50.22 Chronic systolic (congestive) heart failure; I25.10 Atherosclerotic heart disease of native coronary artery without angina pectoris; I27.20 Pulmonary hypertension, unspecified; Z95.1 Presence of aortocoronary bypass graft; Z96.651 Presence of right artificial knee joint; Z88.5 Allergy status to narcotic agent